=== PATIENT | female | born 1970 | race Caucasian/White ===

== ENCOUNTER 2018-08-19 08:29 | Day surgery (SDC) | payer MEDICAID ==
--- NOTE | 2018-08-18 14:58 | PREOPHP ---
Scheduled for outpatient surgery 08/19/2018. HISTORY OF PRESENT ILLNESS: The patient is a 48-year-old female who in overall good health who is going to undergo excision of a right breast mass. The patient presented recently with pain and a nodule in the upper right breast at 12 o'clock, 4 cm from the nipple, measuring 2 cm. Core biopsy revealed fibroadenoma. She is going to undergo excision of this mass. PAST MEDICAL HISTORY: MEDICATIONS: 1. Ibuprofen. 2. Tylenol. ALLERGIES: PENICILLIN. OPERATIONS: section. OBSTETRIC AND GYNECOLOGIC HISTORY: 3, para 3. She has regular menstrual periods. SOCIAL HISTORY: She is a Denominational. PHYSICAL EXAMINATION: GENERAL: The patient is 5 feet 6 inches, 178 pounds. HEENT: Within normal limits. LUNGS: Clear. HEART: Regular rhythm. BREASTS: Large and ptotic. Left breast is unremarkable. Right breast has a 2 cm nodule in the superior breast at approximately 12 o'clock midway between the areola and the periphery. There is no axillary or supraclavicular lymphadenopathy. ABDOMEN: Soft. PELVIC AND RECTAL: Per primary care. EXTREMITIES: Without edema. NEUROLOGIC: Physiologic. IMPRESSION: Right breast mass PLAN: Full discussion has been had with the patient regarding the nature of her condition and the nature of the surgery, indications, alternatives, options and risks including bleeding, infection, need for additional surgery or treatment based on final pathology, scarring or distortion of the breast or nipple, et cetera. All questions have been answered. She understands and agrees to proceed as an outpatient under general anesthesia. Dictated By: SPRING ANGEL/SANJAY Conf#: [id number] DID#: [id number] ZHANE
[~2018-08-19] VITALS: Ht 167.6 cm; Wt 80.0 kg
[2018-08-19] VITALS (12 sets, daily range): BP systolic 117–133; BP diastolic 60–78; PULSE 80–92; RESP 14–17; Ht 167.6 cm; Wt 80.0 kg
[~2018-08-19 08:29] MED LIST: ACETAMINOPHEN 500 MG TAB PO ONE; SOD CHLORIDE 0.9% 1,000 ML IV ONE
--- NOTE | 2018-08-19 09:00 | HPN ---
Date/Time of Note Date/Time of Note DATE: 08/19/18 TIME: 09:00 Interval H&P Admission Note Pt. seen H&P reviewed: No system changes SPRING SALAS Aug 19, 2018 09:00
--- NOTE | 2018-08-19 09:16 | PREAC ---
Date/Time of Note Date/Time of Note DATE: 08/19/18 TIME: 09:15 Anesthesia Eval and Record Evaluation Time Pre-Procedure Interview DATE: 08/19/18 TIME: 09:15 Age 48 Sex female NPO: 8 hrs Preoperative diagnosis R breast mass Planned procedure R breast mass excision Past Medical History Past Medical History: Includes GI: Obesity Surgery & Anesthesia Issues No known issue Meds Anticoagulation: No Beta Smiley within 24 hr: No Reason Beta Smiley not given: Pt. not on B-Smiley No Active Prescriptions or Reported Meds Current Medications Sodium Chloride 1,000 ml @ 75 mls/hr [id number] ONCE IV ; Start 08/19/18 at 07:00; Stop 08/19/18 at 20:19 Meds reviewed: Yes Allergies Coded Allergies: Penicillins (Verified Allergy, Unknown, 08/19/18) Allergies Reviewed: Yes Labs/Studies Labs Reviewed: Reviewed by anesthesiologist test: Negative Pre-procedure Exam Airway: Adequate mouth opening, Adequate thyromental dist Mallampati: Mallampati II Teeth: Normal Lung: Normal Heart: Normal ASA Physical Status ASA physical status: 2 Emergency: None Planned Anesthetic General/MAC: LMA Pre-operative Attestations Prior to commencing anesthesia and surgery, the patient was re-evaluated, there was verification of: *The patient's identity *The results of appropriate recent lab work and preoperative vital signs *The above evaluation not changing prior to induction *Anesthetic plan, risk benefits, alternative and complications discussed with patient/family; questions answered; patient/family understands, accepts and wishes to proceed. RODDY GOODSON Aug 19, 2018 09:16
[2018-08-19] MEDS ORDERED: LABETALOL HCL 20MG INJ IV PRN (09:30)
[2018-08-19] MEDS ORDERED: ALBUTEROL 0.083% (NEB) 2.5 MG/3 ML AMP HHN PRN (09:30)
[2018-08-19] MEDS ORDERED: DIPHENHYDRAMINE 50 MG INJ IV PRN (09:30)
[2018-08-19] MEDS ORDERED: FENTAnyl 50 MCG/ML VIAL IV PRN ×2 (09:30)
[2018-08-19] MEDS ORDERED: ONDANSETRON 4 MG INJ IV PRN (09:30)
[2018-08-19] MEDS ORDERED: MEPERIDINE 25 MG INJ IV PRN (09:30)
[2018-08-19] MEDS ORDERED: OXYCODONE/ACETAMINOPHEN (5/325) TAB PO PRN ×2 (09:30)
[2018-08-19] MEDS ORDERED: morphine (1 MG/ML) 10ML SYRINGE IV PRN ×2 (09:30)
[2018-08-19] MEDS ORDERED: HYDROmorphONE 1 MG/5 ML IV SYRINGE IV PRN ×3 (09:30)
[2018-08-19] MEDS ORDERED: PROPOFOL 40 ML ONE (11:10)
[2018-08-19] MEDS ORDERED: CLINDAMYCIN 900 MG/D5W (PMX) 50 ML IVPB ONE (11:10)
[2018-08-19] MEDS ORDERED: DEXAMETHASONE 4 MG/ML 5 ML INJ ONE (11:11)
[2018-08-19] MEDS ORDERED: MIDAZOLAM 1 MG/ML 2 ML INJ ONE (11:11)
[2018-08-19] MEDS ORDERED: FENTAnyl 50 MCG/ML VIAL ONE (11:11)
[2018-08-19] MEDS ORDERED: ONDANSETRON 4 MG INJ ONE (11:11)
[2018-08-19] MEDS ORDERED: PHENYLephrine (100 MCG/ML) 10ML SYG ONE (12:20)
[2018-08-19] MEDS ORDERED: BUPIVACAINE 0.5% (SDV) 30 ML INJ ONE (12:31)
--- NOTE | 2018-08-19 12:49 | SIPON ---
Date/Time of Note Date/Time of Note DATE: 08/19/18 TIME: 12:46 Operative Report Preoperative Diagnosis right breast mass Postoperative Diagnosis same Operation/Procedure Performed excision of right breast mass Surgeon see signature line lab assistant none Anesthesia: general Estimated blood loss: none Transfusion Required none Specimen right breast mass Grafts/Implants none Complications none SPRING SALAS Aug 19, 2018 12:49
--- NOTE | 2018-08-19 12:51 | PAC ---
Date/Time of Note Date/Time of Note DATE: 08/19/18 TIME: 12:51 Post-Anesthesia Notes Post-Anesthesia Note Last documented vital signs Vital Signs Date Temp Pulse Resp B/P (MAP) Pulse Ox O2 O2 Flow FiO2 Time Delivery Rate 08/19/18 98.1 12:50 08/19/18 98.1 88 91 16 17 133/60 97 100 Room 10:55 1247 (84) 121/ Air face 69 mask 6L Activity: WNL Respiratory function: WNL Cardiovascular function: WNL Mental status: Baseline Pain reasonably controlled: Yes Hydration appropriate: Yes Nausea/Vomiting absent: Yes RODDY GOODSON Aug 19, 2018 12:51
--- NOTE | 2018-08-19 13:28 | OPR ---
DATE OF OPERATION: 08/19/2018 SURGEON: Spring Peterson MD TELEPHOTO ENGINEER: None. ANESTHESIOLOGIST: Beth Huizar CRNA TYPE OF ANESTHESIA: General. PREOPERATIVE DIAGNOSIS: Right breast mass. POSTOPERATIVE DIAGNOSIS: Right breast mass. OPERATION PERFORMED: Excision of right breast mass. INDICATIONS AND FINDINGS: The patient has a 2 cm mass in the right upper breast with core biopsy rev ealing fibroadenoma and associated with pain. Findings revealed a nearly 3 cm mass which was excised by enucleation. DESCRIPTION OF PROCEDURE: The patient was taken to the operating room and under general anesthesia w ith sequential compression device stockings were placed, she was prepped and draped in the usual [facility] ion. A curvilinear incision was made in the 12 o'clock area of the upper breast between the nipple a nd the periphery. Hemostasis was achieved with cautery. The incision was deepened to the mass which was grasped with sharp towel clips. It was excised circumferentially with enucleation removing it i n its entirety. Hemostasis was carefully achieved with cautery. The wound was irrigated and hemosta sis was secured. Incision was closed with interrupted 3-0 Vicryl, followed by continuous 4-0 Monocry l subcuticular suture. Mastisol and 1/2-inch Steri-Strips were applied, followed by dry sterile dres sing. Final sponge and needle counts were correct. The patient tolerated the procedure well and lef t the operating room in good condition. Dictated By: SPRING ANGEL/SANJAY Conf#: [id number] DID#: [id number]
== END 2018-08-19 13:48 | disposition home or self-care (01) ==
LOC: SDS 08:29
PROVIDERS: ATTEND Surgery
DX: N63.0 Unspecified lump in unspecified breast (principal); Z88.0 Allergy status to penicillin
CPT/HCPCS: 19120; 88307; J1100; J2250; J2370; J2405; J3010; Z7610